=== PATIENT | male | born 1945 | race Caucasian/White ===

== ENCOUNTER 2020-07-01 19:38 | Emergency (ER) | payer BC ==
[~2020-07-01] VITALS: Ht 172.7 cm; Wt 106.8 kg
[2020-07-01 19:55] VITALS: BP 152/73
[2020-07-01] MEDS ORDERED: DIPH,PERTUSS(ACELL),TET VAC/PF 0.5 ML SYRINGE. VAX IM ONE ×2 (20:05→20:15)
[2020-07-01] MEDS ORDERED: LIDOCAINE WITH 8.4% SOD BICARB 3 ML DISP.SYRIN. INJ ONE (20:30)
--- NOTE | 2020-07-01 20:49 | PHYS DOC ---
Past Medical History Past Medical History: Hypertension, Hypothyroid, Other Additional Past Medical Histor: Rosacea Past Surgical History: Tonsillectomy Additional Past Surgical Histo: L finger, Cyst from L hand Smoking Status: Former Smoker Alcohol Use: Occasionally Drug Use: None General Adult EDM: Chief Complaint: LACERATION/AVULSION HPI: HPI: Patient is a 75 year old male patient who presents to the ED today with right thumb laceration. Patient states he was opening a can of a pineapple that cut him. Patient is right-handed. Review of Systems: Review of Systems: Constitutional: Denies fever or chills. [] Musculoskeletal: Denies back pain or joint pain. [] Integument: Reports right thumb laceration Neurologic: Denies headache, focal weakness or sensory changes. [] Psychiatric: Denies depression or anxiety. [] Heart Score: Risk Factors: Risk Factors: DM, Current or recent (<one month) smoker, HTN, HLP, family history of CAD, obesity. Risk Scores: Score 0 - 3: 2.5% MACE over next 6 weeks - Discharge Home Score 4 - 6: 20.3% MACE over next 6 weeks - Admit for Clinical Observation Score 7 - 10: 72.7% MACE over next 6 weeks - Early Invasive Strategies Current Medications: Current Medications Medications (Trade) Dose Ordered Sig/Mikhail Start Time Stop Time Status Last Admin Dose Admin Diphtheria/ Tetanus/Acell Pertussis (ADACEL TDap SYRINGE) 0.5 ml ONCE ONCE 07/01/20 20:15 07/01/20 20:22 DC 07/01/20 20:15 0.5 ML Lidocaine HCl (Buffered Lidocaine 1%) 9 ml 1X ONCE 07/01/20 20:30 07/01/20 20:31 DC 07/01/20 20:13 9 ML Allergies: Allergies: Allergies Coded Allergies Type Severity Reaction Last Updated Verified No Known Drug Allergies 01/21/16 No Physical Exam: PE: Constitutional: Well developed, well nourished, no acute distress, non-toxic appearance. [] Skin: Right lateral thumb mid phalanyx with a laceration approx. 3cm long. There is no tendon involvement. Full range of motion to the right thumb. Adequate radial sensation to the right thumb. +2 right radial pulse. Cap refill less than 2 seconds the right thumb. Back: No tenderness, no CVA tenderness. [] Extremities: No tenderness, no cyanosis, no clubbing, ROM intact, no edema. [] Neurologic: Alert and oriented X 3, normal motor function, normal sensory function, no focal deficits noted. [] Psychologic: Affect normal, judgement normal, mood normal. [] Current Patient Data: Vital Signs: Vital Signs Date Time Temp Pulse Resp B/P (MAP) Pulse Ox O2 Delivery O2 Flow Rate FiO2 07/01/20 19:55 98.7 97 18 152/73 (99) 97 Room Air 98.7 EKG: EKG: [] Radiology/Procedures: Radiology/Procedures: Laceration/Wound Repair Wound Location: Right thumb laceration Wound's Depth, Shape: Vertical Wound Length (cm): Approximately 3 cm long Wound Explored: clean Irrigated w/ Saline (ccs): 30 Betadine Prep?: Yes Anesthesia: 1% of buffered lidocaine Volume Anesthetic (ccs): 7 Wound Repaired With: Vicryl Suture Size/Type: 5.0/interrupted sutures Number of Sutures: 8 Progress : Wound was covered with nonstick dressing Course & Med Decision Making: Course & Med Decision Making Pertinent Labs and Imaging studies reviewed. (See chart for details) This is a 75-year-old male patient presenting to the ED today with laceration of the right thumb that was closed by me as noted in procedures. Tetanus updated. Wound care instructions and return precautions provided. Roderick Disclaimer: Roderick Disclaimer: This electronic medical record was generated, in whole or in part, using a voice recognition dictation system. Departure Departure Impression: Primary Impression: Thumb laceration Qualified Codes: S61.011A - Laceration without foreign body of right thumb without damage to nail, initial encounter Disposition: 01 HOME, SELF-CARE Condition: STABLE Referrals: MASSIEL PEREZ MD (PCP) follow up with your doctor as needed Patient Instructions: Fingertip Laceration Additional Instructions: You have a laceration to the right thumb that was closed with the stitches that are dissolvable. Keep the area clean and dry. You can shower. Apply Neosporin to the area twice a day. Monitor the area for any signs of infection including but not limited to increased redness, yellow drainage, warmth to the laceration site and return to the ED if they occur. Justicifation of Admission Dx: Justifications for Admission: Justification of Admission Dx: N/A MUTUNGA,JOSHUA WATER QUALITY ANALYST Jul 01, 2020 20:49
== END 2020-07-01 21:14 | disposition home or self-care (01) ==
LOC: ER 19:38
DX: S61.011A Laceration without foreign body of right thumb without damage to nail, initial encounter (principal); R20.2 Paresthesia of skin; I10 Essential (primary) hypertension; E03.9 Hypothyroidism, unspecified; Z90.89 Acquired absence of other organs; Z98.890 Other specified postprocedural states; Z87.891 Personal history of nicotine dependence; W26.8XXA Contact with other sharp object(s), not elsewhere classified, initial encounter; Y93.89 Activity, other specified; Y92.89 Other specified places as the place of occurrence of the external cause; Y99.8 Other external cause status
CPT/HCPCS: 12002; 90471; 90715; 99283; J3490

== ENCOUNTER 2021-08-28 16:19 | Emergency (ER) | payer BC, MEDICARE ==
[~2021-08-28] VITALS: Ht 175.3 cm; Wt 123.0 kg
--- NOTE | 2021-08-28 17:49 | PHYS DOC ---
Past Medical History Past Medical History: Hypertension, Hypothyroid, Other Additional Past Medical Histor: Rosacea (JOSE EDUARDO WOODSON BOAT LABORER) Past Surgical History: Tonsillectomy Additional Past Surgical Histo: L finger, Cyst from L hand (JOSE EDUARDO WOODSON BOAT LABORER) Smoking Status: Former Smoker Alcohol Use: Occasionally Drug Use: None (JOSE EDUARDO WOODSON BOAT LABORER) General Adult EDM: Chief Complaint: Palpitations HPI: HPI: Patient is a 76 year old male who presents with today began to feel a twitch or irregular heart beat in his chest. He denies a increased shortness of air as he states he is always usually short of air. He denies any chest pain, abdominal pain, nausea, vomiting, diarrhea, cough, fever, headache, dizziness, numbness or tingling, focal weakness, vision change. No pain at this time. Has a history of hypertension, hypothyroidism, rosacea of which he takes doxycycline, tonsillectomy and a former smoker. (JOSE EDUARDO WOODSON BOAT LABORER) Review of Systems: Review of Systems: Constitutional: Denies fever or chills. [] Eyes: Denies change in visual acuity. [] HENT: Denies nasal congestion or sore throat. [] Respiratory: Denies cough or shortness of breath. [] Cardiovascular: Denies chest pain or edema. + Palpitations [] GI: Denies abdominal pain, nausea, vomiting, bloody stools or diarrhea. [] : Denies dysuria. [] Musculoskeletal: Denies back pain or joint pain. [] Integument: Denies rash. [] Neurologic: Denies headache, focal weakness or sensory changes. [] Endocrine: Denies polyuria or polydipsia. [] Lymphatic: Denies swollen glands. [] Psychiatric: Denies depression or anxiety. [] (JOSE EDUARDO WOODSON BOAT LABORER) Heart Score: C/O Chest Pain: No HEART Score for Chest Pain: HEART Score for Chest Pain Response (Comments) Value History Slighlty/Non-Suspicious 0 ECG Normal 0 Age > 65 2 Risk Factors 1 or 2 Risk Factors 1 Troponin < Normal Limit 0 Total 3 Risk Factors: Risk Factors: DM, Current or recent (<one month) smoker, HTN, HLP, family history of CAD, obesity. Risk Scores: Score 0 - 3: 2.5% MACE over next 6 weeks - Discharge Home Score 4 - 6: 20.3% MACE over next 6 weeks - Admit for Clinical Observation Score 7 - 10: 72.7% MACE over next 6 weeks - Early Invasive Strategies (JOSE EDUARDO WOODSON APRN) Allergies: Allergies: Allergies Coded Allergies Type Severity Reaction Last Updated Verified No Known Drug Allergies 01/21/16 No (JOSE EDUARDO WOODSON APRN) Physical Exam: PE: Constitutional: Well developed, well nourished, no acute distress, non-toxic appearance. [] HENT: Normocephalic, atraumatic, bilateral external ears normal, oropharynx moist, no oral exudates, nose normal. [] Eyes: PERRLA, EOMI, conjunctiva normal, no discharge. [] Neck: Normal range of motion, no tenderness, supple, no stridor. [] Cardiovascular:Heart rate regular rhythm, no murmur [] Lungs & Thorax: Bilateral upper breath sounds clear and lower diminished to auscultation [] Abdomen: Bowel sounds normal, soft, no tenderness, no masses, no pulsatile masses. [] Skin: Warm, dry, no erythema, no rash. [] Back: No tenderness, no CVA tenderness. [] Extremities: No tenderness, no cyanosis, no clubbing, ROM intact, no edema. [] Neurologic: Alert and oriented X 3, normal motor function, normal sensory function, no focal deficits noted. [] Psychologic: Affect normal, judgement normal, mood normal. [] (JOSE EDUARDO WOODSON APRN) EKG: EK and read by Dr. Morgan is a sinus rhythm and no STEMI (JOSE EDUARDO WOODSON APRN) Radiology/Procedures: Radiology/Procedures: [] Impression: [facility] [address] [place] [address] IMAGING REPORT Signed PATIENT: LESLIE MANCERA ACCOUNT: [id number] : 1945 LOCATION: ER AGE: 76 SEX: M EXAM STATUS: PRE ER ORD. PHYSICIAN: JOSE EDUARDO WOODSON APRN REASON: palpitations PROCEDURE: PORTABLE CHEST 1V EXAMINATION: Chest radiograph. VIEWS: Single view COMPARISON: 01/21/2016 INDICATION:76 years, Male, palpitations. FINDINGS: Normal cardiomediastinal silhouette. Scattered bilateral calcified granulomas. No focal consolidation. No pleural effusion or pneumothorax. No acute osseous process. IMPRESSION: No acute cardiopulmonary process. Electronically signed by: José Antonio Chinchilla MD (08/28/2021 6:00 PM) [facility] DICTATED and SIGNED BY: JOSÉ ANTONIO CHINCHILLA MD DATE: 08/28/21 [id number] (JOSE EDUARDO WOODSON APRN) Course & Med Decision Making: Course & Med Decision Making Pertinent Labs and Imaging studies reviewed. (See chart for details) See HPI. Alert and oriented x4. Ambulatory steady gait. Speaks in full clear sentences. Skin pink warm and dry. While in the room patient states he was feeling palpitations again and the monitor did not show any irregularity. No extremity edema. Blood work is unremarkable. Patient states he has not had any symptoms. Patient continues to deny chest pain, shortness of breath, dizziness, headache, chest pressure, focal weakness, numbness or tingling, vision change. Patient is stable and will follow up with his primary care. I will also refer him to cardiology. I did go over this patient with Dr Maldonado and she states patient is ok to go home. [] (JOSE EDUARDO WOODSON APRN) Course & Med Decision Making I have participated in the care of this patient and I have reviewed and agree with all pertinent clinical information above including history, exam, and recommendations. Jayla Morgan DO (JAYLA MORGAN DO) Roderick Disclaimer: Roderick Disclaimer: This electronic medical record was generated, in whole or in part, using a voice recognition dictation system. (JOSE EDUARDO WOODSON APRN) Departure Departure Impression: Primary Impression: Palpitations Disposition: HOME / SELF CARE / HOMELESS Condition: STABLE Referrals: MASSIEL PEREZ MD (PCP) NAS HARRY MD Patient Instructions: Palpitations Additional Instructions: Follow-up with your primary care provider for the imaging aide I have referred you to. Drink plenty of fluids. If you begin having chest pain or more frequent palpitations or having numbness and tingling or weakness on one side of your body you need to return to the emergency room. JOSE EDUARDO WOODSON APRN Aug 28, 2021 17:49 JAYLA MORGAN DO Aug 29, 2021 07:32
[2021-08-28 18:00] LABS: BILIRUBIN,URINE NEGATIVE (NEG); CLARITY,URINE CLEAR; COLOR,URINE YELLOW; NITRITE,URINE NEGATIVE (NEG); PROTEIN,URINE NEGATIVE (NEG-TRACE); UROBILINOGEN,URINE 0.2 mg/dL (0.2 mg/dL)
--- NOTE | 2021-08-28 18:01 | EKG ---
[facility] [address] [place] [address] Test Date: 2021-08-28 Test Time: 17:36:11 Pat Name: LESLIE MANCERA Department: Room: Gender: M Health Information Management Director: : 1945 Requested By: JOSE EDUARDO WOODSON Order Number: [id number] Reading MD: Anish Harmon Measurements Intervals [place] Rate: 93 P: -126 MD: 120 QRS: 9 QRSD: 88 T: 60 QT: 342 QTc: 428 Interpretive Statements SINUS RHYTHM NO SPECIFIC ECG ABNORMALITIES RI6.01 Compared to ECG 01/21/2016 16:31:59 No significant changes Electronically Signed On 09-01-2021 9:45:22 [employer] by Anish Harmon
--- NOTE | 2021-08-28 18:02 | RAD ---
EXAMINATION: Chest radiograph. VIEWS: Single view COMPARISON: 01/21/2016 INDICATION:76 years, Male, palpitations. FINDINGS: Normal cardiomediastinal silhouette. Scattered bilateral calcified granulomas. No focal consolidation . No pleural effusion or pneumothorax. No acute osseous process. IMPRESSION: No acute cardiopulmonary process. Electronically signed by: Lillian Chinchilla MD (08/28/2021 6:00 PM) [facility]
[2021-08-28 18:08] LABS: BACTERIA,URINE 0 /HPF (0-FEW); RBC,URINE 0 /HPF (0-2); WBC,URINE 0 /HPF (0-4)
[2021-08-28 18:11] LABS: AMPHETAMINE/METHAMPHETAMINE NEG (NEG); BARBITURATES NEG (NEG); BENZODIAZEPINES NEG (NEG); CANNABINOIDS NEG (NEG); COCAINE NEG (NEG); METHADONE NEG (NEG); OPIATES NEG (NEG); PHENCYCLIDINE NEG (NEG)
[2021-08-28 18:15] LABS: BASO # 0.1 x10^3/uL (0.0-0.2); BASO % 1 % (0-3); EOS % 1 % (0-3); HEMATOCRIT 38.5 % (39.0-53.0); HEMOGLOBIN 13.5 g/dL (13.0-17.5); LYMPH # 0.9 x10^3/uL (1.0-4.8); LYMPH % 13 % (24-48); MEAN CORPUSCULAR HEMOGLOBIN 34 pg (25-35); MEAN CORPUSCULAR HGB CONC 35 g/dL (31-37); MEAN CORPUSCULAR VOLUME 96 fL (79-100); MONO # 0.4 x10^3/uL (0.0-1.1); MONO % 6 % (0-9); NEUT # 5.5 x10^3/uL (1.8-7.7); NEUT % 80 % (31-73); PLATELET COUNT 200 x10^3/uL (140-400); RED BLOOD COUNT 4.02 x10^6/uL (4.30-5.70); RED CELL DISTRIBUTION WIDTH 13.4 % (11.5-14.5)
[2021-08-28 18:45] LABS: CALCIUM 9.3 mg/dL (8.5-10.1); CREATININE 1.3 mg/dL (0.7-1.3); POTASSIUM 4.6 mmol/L (3.5-5.1)
[2021-08-28 18:51] LABS: MAGNESIUM 2.1 mg/dL (1.8-2.4); TOTAL BILIRUBIN 0.5 mg/dL (0.2-1.0); TOTAL PROTEIN 7.9 g/dL (6.4-8.2)
[2021-08-28 18:59] VITALS: BP 138/70
== END 2021-08-28 20:25 | disposition home or self-care (01) ==
LOC: ER 16:19
DX: R00.2 Palpitations (principal); I10 Essential (primary) hypertension; E03.9 Hypothyroidism, unspecified
CPT/HCPCS: 36415; 71045; 80053; 80307; 81001; 83735; 83880; 84443; 84484; 85025; 93005; 99285